=== PATIENT | male | born 1970 ===

== ENCOUNTER 2016-07-25 11:34 | Day surgery (SDC) | payer OTHER ==
[2016-07-20 11:06] VITALS: BMI 35.2
[2016-07-25] MEDS ORDERED: Propofol 10 mg/ml Inj (20 ML) ONE ×2 (12:44→12:48)
[2016-07-25] MEDS ORDERED: Lidocaine 1% Inj (20ml) ONE (12:47)
[2016-07-27 15:36] VITALS: BP 126/77; PULSE 68; RESP 16; TEMP 97.7; O2SAT 97
== END 2016-07-25 14:18 | disposition home or self-care (01) ==
LOC: ENDO 11:34
PROVIDERS: ATTEND Internal Medicine
DX: K20.9 Esophagitis, unspecified (principal); K62.1 Rectal polyp; K64.8 Other hemorrhoids; K29.50 Unspecified chronic gastritis without bleeding
CPT/HCPCS: 43239; 45380; 88305; 88342; J2704; J3010; J7040